=== PATIENT | male | born 1960 | race Caucasian/White ===

== ENCOUNTER 2019-04-10 07:30 | Day surgery (SDC) | payer BC ==
[2019-04-10] VITALS (7 sets, daily range): BP systolic 133–147; BP diastolic 71–99
[~2019-04-10] VITALS: Ht 182.9 cm; Wt 129.5 kg
[~2019-04-10 07:30] MED LIST: ALLO100T PO; CALC-950 PO; OMEG1CAP13 PO
[2019-04-10] MEDS ORDERED: ceFAZolin inj. 2,000 MG in dextrose 5%-water 50ml 50 ML IV ONE (08:00)
[2019-04-10] MEDS ORDERED: ceFAZolin 1GM/D5W- ADD-VANTAGE 50 ML IV ONE (08:00)
[2019-04-10] MEDS ORDERED: ceFAZolin inj. 3,000 MG in normal saline 100ml IV soln 100 ML IV ONE (08:30)
[2019-04-10] MEDS ORDERED: ringers solution, lacted 1,000 ML IV SCH ×2 (08:30→11:03)
[2019-04-10] MEDS ORDERED: famotidine 20mg tablet PO ONE (08:30)
[2019-04-10 09:35] LABS: BASOPHILS % (AUTO) 0.5 % (0-1); EOSINOPHILS # (AUTO) 0.1 X10'3 (0-0.9); EOSINOPHILS % (AUTO) 1.1 % (0-6); LYMPHOCYTES # (AUTO) 1.5 X10'3 (1.1-4.8); LYMPHOCYTES % (AUTO) 26.8 % (21-51); MEAN CORPUSCULAR HGB CONC 32.9 g/dL (33.0-36.5); MEAN PLATELET VOLUME 8.9 FL (7.4-10.4); MONOCYTES # (AUTO) 0.4 X10'3 (0-0.9); MONOCYTES % (AUTO) 7.3 % (2-12); NEUTROPHILS # (AUTO) 3.5 X10'3 (1.8-7.7); NEUTROPHILS % (AUTO) 64.3 % (42-75); PRE OP HEMATOCRIT 44.6 % (42.0-52.0); PRE OP HEMOGLOBIN 14.7 g/dL (14.0-17.9); PRE OP PLATELET COUNT 215 X10'3 (140-440); RED BLOOD COUNT 5.25 X10'6 (4.70-6.10)
[2019-04-10 09:47] LABS: ALANINE AMINOTRANSFERASE 43 U/L (12-78); ALBUMIN 3.8 G/DL (3.4-5.0); ALBUMIN/GLOBULIN RATIO 1.1 (1.1-1.5); ALKALINE PHOSPHATASE 59 IU/L (46-116); ANION GAP 8 (8-16); ASPARTATE AMINO TRANSFERASE 26 U/L (10-37); BILIRUBIN,TOTAL 0.4 MG/DL (0.1-1.0); BLOOD UREA NITROGEN 13 MG/DL (7-18); BUN/CREATININE RATIO 11.8 (5.4-32.0); CALCIUM 8.9 MG/DL (8.5-10.1); CHLORIDE 108 MMOL/L (99-107); GLUCOSE 95 MG/DL (70-104); POTASSIUM 4.3 MMOL/L (3.5-5.1); SODIUM 143 MMOL/L (135-145); TOTAL CARBON DIOXIDE 26.8 MMOL/L (24-32); TOTAL PROTEIN 7.3 G/DL (6.4-8.2); eGFR 69 ML/MIN
[2019-04-10] MEDS ORDERED: proCHLORperazine 10 MG/2 ml inj IV PRN (11:05)
[2019-04-10] MEDS ORDERED: ondansetron/PF 4mg/2ml inj IV PRN (11:05)
[2019-04-10] MEDS ORDERED: meperidine/PF 25mg/ml syringe IV PRN ×3 (11:05)
[2019-04-10] MEDS ORDERED: morphine 4 MG/ML inj SYRINge IV PRN ×2 (11:05)
[2019-04-10] MEDS ORDERED: BUPIVAcaine/PF 2.5 mg/ml (0.25%) 30ml vial ONE (11:08)
[2019-04-10] MEDS ORDERED: ceFAZolin 1000mg inj ONE (11:08)
[2019-04-10] MEDS ORDERED: BUPIVACAINE liposomal/PF 13.3 MG/ML vial IM ONE (11:09)
[2019-04-10] MEDS ORDERED: sevoflurane 250ml liquid IH ONE (11:32)
[2019-04-10] MEDS ORDERED: midazolam 2 mg/2 ml injection ONE (11:37)
[2019-04-10] MEDS ORDERED: fentaNYL /PF 50mcg/ml 5ml ampule ONE (11:38)
[2019-04-10] MEDS ORDERED: dexamethasone sod phosphate 4mg/ml inj. ONE (12:10)
[2019-04-10] MEDS ORDERED: LIDOcaine 2% (20mg/ml) 5ml vial ONE (12:10)
[2019-04-10] MEDS ORDERED: propofol inj 20 ML IV ONE (12:10)
[2019-04-10] MEDS ORDERED: ondansetron/PF 4mg/2ml inj ONE ×2 (12:10→12:50)
--- NOTE | 2019-04-10 12:30 | NUR ---
Received from OR via BED , accompanied by Anesthesiologist DR SALDANA and report given by Anesthesiolgist. PATIENT WAKING UP, DENIES PAIN, V/S WNL, NEUROVASCULAR CHECKS INTACT, 20G PIV LUE, SCD ON, DRESSING TO ABDOMEN CDI.
--- NOTE | 2019-04-10 13:20 | NUR ---
PATIENT A&OX4, DENIES PAIN, V/S WNL, NEUROVASCULAR CHECKS INTACT, 20G PIV LUE D/C, SCD OFF, DRESSING TO ABDOMEN CDI. PATIENT HAS VOIDED. SCRIPT FOR [facility] GIVEN TO PATIENT. I HAVE REVIEWED D/C INSTRUCTIONS WITH PATIENT AND FAMILY HAVE VERBALIZED UNDERSTANDING.PATIENT WAS D/C HOME WITH ALL BELONGINGS AND FAMILY GAVE TRANSPORT HOME.
== END 2019-04-10 13:20 | disposition home or self-care (01) ==
LOC: PAS 07:30
PROVIDERS: ATTEND Surgery
DX: K42.9 Umbilical hernia without obstruction or gangrene (principal); M10.9 Gout, unspecified; E11.9 Type 2 diabetes mellitus without complications; E66.01 Morbid (severe) obesity due to excess calories; Z68.38 Body mass index [BMI] 38.0-38.9, adult; Z87.891 Personal history of nicotine dependence; Z79.899 Other long term (current) drug therapy; Z98.890 Other specified postprocedural states
CPT/HCPCS: 36415; 49585; 80053; 82948; 85025; 93005; C1781; C9290; J0690; J1100; J2001; J2250; J2405; J2704; J3010; J3490; J7060; J7120; A4215; A4618; A6449; A7000